=== PATIENT | female | born 1940 | race Caucasian/White ===

== ENCOUNTER → 2017-05-27 | Outpatient (CLI) | payer MEDICARE, BC ==
[~2017-05-27] MED LIST: AMILORIDE/HCTZ1 TAB PO
== END ==
LOC: COL.RAD 09:37
DX: R19.7 Diarrhea, unspecified (principal); R10.9 Unspecified abdominal pain

== ENCOUNTER → 2017-08-22 | Outpatient (CLI) | payer MEDICARE, BC | LOC: MC.RAD 12:58 | DX: Z12.31 Encounter for screening mammogram for malignant neoplasm of breast (principal) ==

== ENCOUNTER 2018-04-27 08:24 | Outpatient (RCR) | payer MEDICARE, BC | END 2018-07-26 | disposition home or self-care (01) | LOC: WSC → WSPT 08:30 | DX: M79.671 Pain in right foot (principal) | CPT/HCPCS: G8978-GP; G8979-GP ==

== ENCOUNTER → 2018-09-18 | Outpatient (CLI) | payer MEDICARE, BC | LOC: MC.RAD 10:59 | DX: Z12.31 Encounter for screening mammogram for malignant neoplasm of breast (principal) ==

== ENCOUNTER → 2020-12-24 | Outpatient (CLI) | payer MEDICARE, BC | LOC: MC.RAD 11:30 | DX: Z12.31 Encounter for screening mammogram for malignant neoplasm of breast (principal) ==